=== PATIENT | male | born 1950 | race Caucasian/White ===

== ENCOUNTER 2023-03-17 09:56 | Outpatient (AMB) | payer OTHER, SELFPAY ==
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
[2023-03-17 10:37] VITALS: BP 124/66; PULSE 64; O2SAT 96; BMI 30.3
== END 2023-03-17 11:38 | disposition home or self-care (01) ==
PROVIDERS: PCP Nurse Practitioner Family; Visit Provider Nurse Practitioner Family
DX: R42 Dizziness and giddiness (principal); R25.1 Tremor, unspecified; R26.9 Unspecified abnormalities of gait and mobility
CPT/HCPCS: 99204

== ENCOUNTER → 2023-03-17 09:56 | Outpatient (BNVA) | payer OTHER, SELFPAY | PROVIDERS: PCP Nurse Practitioner Family; Visit Provider Nurse Practitioner Family ==

== ENCOUNTER 2023-06-16 09:19 | Outpatient (AMB) | payer OTHER, SELFPAY ==
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
[2023-06-16 09:26] VITALS: BP 128/72; BMI 30.5
== END 2023-06-16 10:20 | disposition home or self-care (01) ==
PROVIDERS: PCP Nurse Practitioner Family; Visit Provider Nurse Practitioner Family
DX: R42 Dizziness and giddiness (principal); I10 Essential (primary) hypertension; R25.1 Tremor, unspecified; R26.9 Unspecified abnormalities of gait and mobility
CPT/HCPCS: 99214

== ENCOUNTER → 2023-06-16 09:19 | Outpatient (BNVA) | payer OTHER, SELFPAY | PROVIDERS: PCP Nurse Practitioner Family; Visit Provider Nurse Practitioner Family ==

== ENCOUNTER 2023-07-05 08:56 | Outpatient (AMB) | payer OTHER, SELFPAY ==
[2023-07-05 09:01] VITALS: BP 120/68; PULSE 63; O2SAT 94; BMI 31.0
--- NOTE | 2023-07-05 09:01 | HO.NEPHOV_ITS ---
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 He has been experiencing dizziness for quite some time. About 4 years ago he was seen by ENT and no cause was determined. He was also seen by Neurology recently and underwent workup including MRI which were all unremarkable except for empty sella. Today he was accompanied by his daughter. At home his blood pressures have been monitored. No significant orthostatic change has been documented. His current medications include amlodipine 10 mg carvedilol 6.25 b.i.d. losartan 100-12.5 once a day. Recently gabapentin 100 mg has been added but no significant improvement. He denies any headache nausea or vomiting. He has constipation no diarrhea. He is arthritis in his shoulders. He also has pain in his lower buttocks with a presumed diagnosis of a scale bursitis. No shortness of breath or cough. No weight loss or weight gain. No palpitation no sweating. No visual symptoms Accompanied by daughter Juany who helped with translation. [facility] Medical History (Updated 06/16/23 @ 10:20 by DIANA Garcia) Strain of rotator cuff of both shoulders Tinnitus Sensorineural hearing loss Polyp of colon Peripheral polyneuropathy Osteoarthritis Mucus clot in bronchi Nephrolithiasis ILD (interstitial lung disease) HLD (hyperlipidemia) Aortic root dilation Constipation Nontraumatic compression fracture of T6 vertebra Chronic back pain Bilateral cataracts CAD (coronary artery disease) Blepharitis Atherosclerosis Anxiety History of fracture of right ankle Age-related macular degeneration Surgical History H/O hernia repair Social History Alcohol intake: never Patient Tobacco Use Status: Never used Tobacco Physical Exam Vital Signs: Last Vital Signs Pulse 63 07/05/23 09:01 BP 120/68 07/05/23 09:01 Pulse Ox 94 04/24/24 09:01 Oxygen Delivery Method Room Air 07/05/23 09:01 BMI result Body Mass Index 31.0 Blood pressure supine was 120/70. Sitting blood pressure 110/60 Standing blood pressure 110/60. He was asymptomatic Const General: comfortable Nutritional Appearance: well nourished Orientation/consciousness: patient oriented x3 HEENT Head: No normal to inspection Mouth: moist mucous membranes Eyes EOM: No Nystagmus present Neck Neck: Yes supple and Yes no JVD Resp Auscultation: clear to auscultation bilaterally, no rales and rub present Cardio Jugular venous distension: no JVD Palpation: no palpable S3 and no palpable S4 Heart sounds: no rubs GI Palpation (GI): Soft to palpation and nontender Percussion: No Fluid wave present General: Yes no CVA tenderness Back/Spine/Pelvis Back: no CVA tenderness Skin General skin exam: no rashes or lesions noted Neuro Other: No Rombergs General: patient oriented x3 Cranial nerves: Yes CN's II-XII intact bilaterally and No Nystagmus present Speech: Abnormal speech present Gait exam (Neuro): not ataxic Motor exam (neuro): no tremors Extrem General: Yes no pedal edema and No clubbing Results Reviewed Results Reviewed: Creatinine 0.7 electrolytes normal Nephrology Results: No Data to Display Assessment & Plan Assessment & Plan (1) HTN (hypertension): Code(s): I10 - Essential (primary) hypertension Category: Medical (2) Dizziness: Code(s): R42 - Dizziness and giddiness Category: Medical Plan . Abigail is a 69-year-old man with a history of longstanding hypertension and dizziness for quite some time. He is on multiple medications. I suspect that medication could be contributing to his dizziness. He is undergone ENT workup in the past which has been unremarkable. MRI shows empty sella otherwise unremarkable. Today he has no significant orthostatic blood pressure changes. Plan Check 24 hour ABPM Based on a 24 hour ABPM and I would readjust his medications to see if this any improvement in the dizziness. I have encouraged him to increase fluid intake. Orders: Orders AMB 24 Hour Blood Pressure Monitor PLACEMENT Today I10 - Essential (primary) hypertension Coding Level of Care Code New Pt Level 4 (62580) Diagnoses HTN (hypertension) I10 Dizziness R42
== END 2023-07-05 09:33 | disposition home or self-care (01) ==
PROVIDERS: PCP Nurse Practitioner Family; Referring Provider Nurse Practitioner Family; Visit Provider Internal Medicine Hypertension Specialist
DX: I10 Essential (primary) hypertension (principal); R42 Dizziness and giddiness
CPT/HCPCS: 99204

== ENCOUNTER → 2023-07-05 08:56 | Outpatient (BNVA) | payer OTHER, SELFPAY | PROVIDERS: PCP Nurse Practitioner Family; Referring Provider Nurse Practitioner Family; Visit Provider Internal Medicine Hypertension Specialist ==

== ENCOUNTER → 2023-07-25 09:43 | Outpatient (BNVA) | payer OTHER, SELFPAY | PROVIDERS: PCP Nurse Practitioner Family; Visit Provider Internal Medicine Hypertension Specialist ==

== ENCOUNTER 2023-07-26 09:41 | Outpatient (AMB) | payer OTHER, SELFPAY ==
[2023-07-26 09:47] VITALS: BP 128/72; PULSE 65; O2SAT 95; BMI 30.2
--- NOTE | 2023-07-26 09:47 | HO.NEPHOV ---
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 Accompanied by: Daughter Allergies lisinopril Allergy (Severe, Verified 07/26/23 09:48) Itching Medication List - Last Reconciled 07/26/23 by Margarito Garg MD amlodipine 5 mg PO DAILY [id number] (Refresh Optive Advanced) ophthalmic (eye) QID carvedilol 6.25 mg PO BID cholecalciferol (vitamin D3) 50 mcg PO DAILY dorzolamide-timolol 22.3-6.8 mg/mL 1 drp ophthalmic (eye) BID latanoprost 0.005% 1 drp ophthalmic (eye) QPM losartan-hydrochlorothiazide 100-12.5 mg 0.5 tabs PO DAILY rosuvastatin 20 mg PO DAILY vitamins A,C,T-hpag-wluruw (PreserVision AREDS) orally bid; HPI Comments Details: Abigail is a pleasant 73-year-old man with a history of hypertension on multiple medications. He has been experiencing dizziness for quite some time. About 4 years ago he was seen by ENT and no cause was determined. He was also seen by Neurology recently and underwent workup including MRI which were all unremarkable except for empty sella. Today he was accompanied by his daughter. At home his blood pressures have been monitored. No significant orthostatic change has been documented. His current medications include amlodipine 10 mg carvedilol 6.25 b.i.d. losartan 100-12.5 once a day. Recently gabapentin 100 mg has been added but no significant improvement. He denies any headache nausea or vomiting. He has constipation no diarrhea. He is arthritis in his shoulders. He also has pain in his lower buttocks with a presumed diagnosis of a scale bursitis. No shortness of breath or cough. No weight loss or weight gain. No palpitation no sweating. No visual symptoms Accompanied by daughter Juany who helped with translation. 07/26/23 Still feels dizzy Underwent 24 hr ABPM [facility] Medical History (Updated 06/16/23 @ 10:20 by DIANA Garcia) Strain of rotator cuff of both shoulders Tinnitus Sensorineural hearing loss Polyp of colon Peripheral polyneuropathy Osteoarthritis Mucus clot in bronchi Nephrolithiasis ILD (interstitial lung disease) HLD (hyperlipidemia) Aortic root dilation Constipation Nontraumatic compression fracture of T6 vertebra Chronic back pain Bilateral cataracts CAD (coronary artery disease) Blepharitis Atherosclerosis Anxiety History of fracture of right ankle Age-related macular degeneration Surgical History H/O hernia repair Social History Alcohol intake: never Patient Tobacco Use Status: Never used Tobacco Physical Exam Vital Signs: Last Vital Signs Pulse 65 07/26/23 09:47 BP 128/72 07/26/23 09:47 Pulse Ox 95 07/26/23 09:47 Oxygen Delivery Method Room Air 07/26/23 09:47 BMI result Body Mass Index 30.2 Blood pressure supine was 120/70. Sitting blood pressure 110/60 Standing blood pressure 110/60. He was asymptomatic Const General: comfortable Nutritional Appearance: well nourished Orientation/consciousness: patient oriented x3 HEENT Head: No normal to inspection Mouth: moist mucous membranes Eyes EOM: No Nystagmus present Neck Neck: Yes supple and Yes no JVD Resp Auscultation: clear to auscultation bilaterally, no rales and rub present Cardio Jugular venous distension: no JVD Palpation: no palpable S3 and no palpable S4 Heart sounds: no rubs GI Palpation (GI): Soft to palpation and nontender Percussion: No Fluid wave present General: Yes no CVA tenderness Back/Spine/Pelvis Back: no CVA tenderness Skin General skin exam: no rashes or lesions noted Neuro Other: No Rombergs General: patient oriented x3 Cranial nerves: Yes CN's II-XII intact bilaterally and No Nystagmus present Speech: Abnormal speech present Gait exam (Neuro): not ataxic Motor exam (neuro): no tremors Extrem General: Yes no pedal edema and No clubbing Results Reviewed Results Reviewed: Creatinine 0.7 electrolytes normal Nephrology Results: No Data to Display Assessment & Plan Assessment & Plan (1) HTN (hypertension): Code(s): I10 - Essential (primary) hypertension Category: Medical (2) Dizziness: Code(s): R42 - Dizziness and giddiness Category: Medical Plan . Abigail is a 69-year-old man with a history of longstanding hypertension and dizziness for quite some time. He is on multiple medications. I suspect that medication could be contributing to his dizziness. He is undergone ENT workup in the past which has been unremarkable. MRI shows empty sella otherwise unremarkable. Today he has no significant orthostatic blood pressure changes. 24 hour ABPM show LOW BP with white coat effect Decrease Losartan HCT 100/12.5 and Amlodipine 10 mg by 50 % ( take half a tab of each) Watch BP at home Coding Level of Care Code Est Pt Level 4 (38878) Diagnoses HTN (hypertension) I10 Dizziness R42
== END 2023-07-26 10:12 | disposition home or self-care (01) ==
PROVIDERS: PCP Nurse Practitioner Family; Visit Provider Internal Medicine Hypertension Specialist
DX: I10 Essential (primary) hypertension (principal); R42 Dizziness and giddiness
CPT/HCPCS: 93790; 99214

== ENCOUNTER → 2023-07-26 09:41 | Outpatient (BNVA) | payer OTHER, SELFPAY | PROVIDERS: PCP Nurse Practitioner Family; Visit Provider Internal Medicine Hypertension Specialist | DX: I10 Essential (primary) hypertension (principal) ==

== ENCOUNTER 2023-08-16 09:37 | Outpatient (AMB) | payer OTHER, SELFPAY ==
[2023-08-16 09:40] VITALS: BP 136/72; PULSE 64; O2SAT 94; BMI 30.3
--- NOTE | 2023-08-16 09:40 | HO.NEPHOV ---
Vital Signs 08/16/23 09:40 Height 5 ft 6 in Weight 188 lb BMI 30.3 BP 136/72 Blood Pressure Location Lt brachial Position Sitting Pulse 64 Pulse Source Pulse Oximeter Pulse Oximetry (%) 94 Oxygen Delivery Method Room Air Intake Visit Reasons: Essential (primary) hypertension/ Confirmed [employer] Aid Required: No Accompanied by: Daughter Allergies lisinopril Allergy (Severe, Verified 08/16/23 09:41) Itching HPI Comments Details: Abigail is a pleasant 73-year-old man with a history of hypertension on multiple medications. He has been experiencing dizziness for quite some time. About 4 years ago he was seen by ENT and no cause was determined. He was also seen by Neurology recently and underwent workup including MRI which were all unremarkable except for empty sella. Today he was accompanied by his daughter. At home his blood pressures have been monitored. No significant orthostatic change has been documented. His current medications include amlodipine 10 mg carvedilol 6.25 b.i.d. losartan 100-12.5 once a day. Recently gabapentin 100 mg has been added but no significant improvement. He denies any headache nausea or vomiting. He has constipation no diarrhea. He is arthritis in his shoulders. He also has pain in his lower buttocks with a presumed diagnosis of a scale bursitis. No shortness of breath or cough. No weight loss or weight gain. No palpitation no sweating. No visual symptoms Accompanied by daughter Juany who helped with translation. 07/26/23 Still feels dizzy Underwent 24 hr ABPM 08/16/2023. Feels marginally better after lowering the medications. Home blood pressure readings are acceptable. No new issues today. FORMERLY [facility], [facility]–1983 Medical History (Updated 06/16/23 @ 10:20 by DIANA Garcia) Strain of rotator cuff of both shoulders Tinnitus Sensorineural hearing loss Polyp of colon Peripheral polyneuropathy Osteoarthritis Mucus clot in bronchi Nephrolithiasis ILD (interstitial lung disease) HLD (hyperlipidemia) Aortic root dilation Constipation Nontraumatic compression fracture of T6 vertebra Chronic back pain Bilateral cataracts CAD (coronary artery disease) Blepharitis Atherosclerosis Anxiety History of fracture of right ankle Age-related macular degeneration Surgical History H/O hernia repair Social History Alcohol intake: never Patient Tobacco Use Status: Never used Tobacco Review of Systems Neuro Reports Abnormal speech present Physical Exam Vital Signs: Last Vital Signs Pulse 64 08/16/23 09:40 BP 136/72 08/16/23 09:40 Pulse Ox 94 08/16/23 09:40 Oxygen Delivery Method Room Air 08/16/23 09:40 BMI result Body Mass Index 30.3 Sitting blood pressure 110/60 Const General: comfortable Nutritional Appearance: well nourished Orientation/consciousness: patient oriented x3 HEENT Head: No normal to inspection Mouth: moist mucous membranes Eyes EOM: No Nystagmus present Neck Neck: Yes supple and Yes no JVD Resp Auscultation: clear to auscultation bilaterally, no rales and rub present Cardio Jugular venous distension: no JVD Palpation: no palpable S3 and no palpable S4 Heart sounds: no rubs GI Palpation (GI): Soft to palpation and nontender Percussion: No Fluid wave present General: Yes no CVA tenderness Back/Spine/Pelvis Back: no CVA tenderness Skin General skin exam: no rashes or lesions noted Neuro Other: No Rombergs General: patient oriented x3 Cranial nerves: Yes CN's II-XII intact bilaterally and No Nystagmus present Speech: Abnormal speech present Gait exam (Neuro): not ataxic Motor exam (neuro): no tremors Extrem General: Yes no pedal edema and No clubbing Results Reviewed Nephrology Results: No Data to Display Assessment & Plan Assessment & Plan (1) HTN (hypertension): Code(s): I10 - Essential (primary) hypertension Category: Medical (2) Dizziness: Code(s): R42 - Dizziness and giddiness Category: Medical Plan . Abigail is a 69-year-old man with a history of longstanding hypertension and dizziness for quite some time. He is on multiple medications. I suspect that medication could be contributing to his dizziness. He is undergone ENT workup in the past which has been unremarkable. MRI shows empty sella otherwise unremarkable. No significant orthostatic blood pressure changes. 24 hour ABPM showed LOW BP with white coat effect Stop Losartan HCT 100/12.5 half a tablet a day Start losartan 50 mg daily Decrease Amlodipine from 5 mg down to 2.5 mg Watch BP at home Medications: New losartan 50 mg PO DAILY 30 tabs 2RF Changed From amlodipine 5 mg PO DAILY To amlodipine 2.5 mg PO DAILY 30 tabs 1RF Coding Level of Care Code Est Pt Level 4 (22545) Diagnoses HTN (hypertension) I10 Dizziness R42
== END 2023-08-16 10:01 | disposition home or self-care (01) ==
PROVIDERS: PCP Nurse Practitioner Family; Visit Provider Internal Medicine Hypertension Specialist
DX: I10 Essential (primary) hypertension (principal); R42 Dizziness and giddiness
CPT/HCPCS: 99214

== ENCOUNTER → 2023-08-16 09:37 | Outpatient (BNVA) | payer OTHER, SELFPAY | PROVIDERS: PCP Nurse Practitioner Family; Visit Provider Internal Medicine Hypertension Specialist | DX: I10 Essential (primary) hypertension (principal) ==

== ENCOUNTER 2023-09-20 09:07 | Outpatient (AMB) | payer OTHER, SELFPAY ==
[2023-09-20 09:12] VITALS: BP 144/72; PULSE 62; O2SAT 94; BMI 30.8
--- NOTE | 2023-09-20 09:12 | HO.NEPHOV_ITS ---
Vital Signs 09/20/23 09:12 09/20/23 09:25 09/20/23 09:25 09/20/23 09:25 Height 5 ft 6 in Weight 191 lb BMI 30.8 BP 144/72 H 120/70 120/70 120/70 Blood Pressure Location Lt brachial Lt brachial Lt brachial Lt brachial Position Sitting Supine Sitting Standing Pulse 62 Pulse Source Pulse Oximeter Pulse Oximetry (%) 94 Oxygen Delivery Method Room Air Intake Visit Reasons: Essential (primary) hypertension/ LVM [employer] Technician Required: No Accompanied by: Daughter Allergies lisinopril Allergy (Severe, Verified 09/20/23 09:14) Itching HPI Comments Details: Abigail is a pleasant 73-year-old man with a history of hypertension on multiple medications. He has been experiencing dizziness for quite some time. About 4 years ago he was seen by ENT and no cause was determined. He was also seen by Neurology recently and underwent workup including MRI which were all unremarkable except for empty sella. Today he was accompanied by his daughter. At home his blood pressures have been monitored. No significant orthostatic change has been documented. His current medications include amlodipine 10 mg carvedilol 6.25 b.i.d. losartan 100-12.5 once a day. Recently gabapentin 100 mg has been added but no significant improvement. He denies any headache nausea or vomiting. He has constipation no diarrhea. He is arthritis in his shoulders. He also has pain in his lower buttocks with a presumed diagnosis of a scale bursitis. No shortness of breath or cough. No weight loss or weight gain. No palpitation no sweating. No visual symptoms Accompanied by daughter Juany who helped with translation. 07/26/23 Still feels dizzy Underwent 24 hr ABPM 08/16/2023. Feels marginally better after lowering the medications. Home blood pressure readings are acceptable. No new issues today. 09/19 After lowering anti hypertensiive, home BP has been excellent Still has dizziness [facility] Medical History (Updated 06/16/23 @ 10:20 by DIANA Garcia) Strain of rotator cuff of both shoulders Tinnitus Sensorineural hearing loss Polyp of colon Peripheral polyneuropathy Osteoarthritis Mucus clot in bronchi Nephrolithiasis ILD (interstitial lung disease) HLD (hyperlipidemia) Aortic root dilation Constipation Nontraumatic compression fracture of T6 vertebra Chronic back pain Bilateral cataracts CAD (coronary artery disease) Blepharitis Atherosclerosis Anxiety History of fracture of right ankle Age-related macular degeneration Surgical History H/O hernia repair Social History Alcohol intake: never Patient Tobacco Use Status: Never used Tobacco Physical Exam Vital Signs: Last Vital Signs Pulse 62 09/20/23 09:12 BP 144/72 H 09/20/23 09:12 Pulse Ox 94 09/20/23 09:12 Oxygen Delivery Method Room Air 09/20/23 09:12 BMI result Body Mass Index 30.8 Const General: comfortable; No acute distress Orientation/consciousness: patient oriented x3 Eyes General: appearance normal, both eyes and all related structures Visual Epterson: normal visual peterson by confrontation Neck Neck: Yes supple and Yes no JVD Resp Effort & Inspection: normal respiratory effort and respiratory effort not decreased Auscultation: rhonchi Cardio Palpation: no palpable S3 and no palpable S4 Heart sounds: no rubs GI Inspection: Yes normal to inspection Palpation (GI): Soft to palpation Percussion: Yes normal to percussion Auscultation: normal bowel sounds General: Yes no CVA tenderness Back/Spine/Pelvis Back: no CVA tenderness Skin General skin exam: no petechiae and no purpura Neuro General: patient oriented x3 and no focal motor deficits Extrem General: No clubbing and No edema Results Reviewed Nephrology Results: No Data to Display Assessment & Plan Assessment & Plan (1) HTN (hypertension): Code(s): I10 - Essential (primary) hypertension Category: Medical (2) Dizziness: Code(s): R42 - Dizziness and giddiness Category: Medical Plan . Abigail is a 69-year-old man with a history of longstanding hypertension and dizziness for quite some time. He is on multiple medications. I suspect that medication could be contributing to his dizziness. He is undergone ENT workup in the past which has been unremarkable. MRI shows empty sella otherwise unremarkable. No significant orthostatic blood pressure changes. 24 hour ABPM showed LOW BP with white coat effect - Meds were lowered last visit and tolerating well. Keep current meds No change today Dizziness is not due to hyper/hypo tension ( No orthostasis) Needs to be reevaluated by ENT Coding Level of Care Code Est Pt Level 4 (87039) Diagnoses HTN (hypertension) I10 Dizziness R42
[2023-09-20 09:25] VITALS: BP 120/70
== END 2023-09-20 09:32 | disposition home or self-care (01) ==
PROVIDERS: PCP Nurse Practitioner Family; Visit Provider Internal Medicine Hypertension Specialist
DX: I10 Essential (primary) hypertension (principal); R42 Dizziness and giddiness
CPT/HCPCS: 99214

== ENCOUNTER → 2023-09-20 09:07 | Outpatient (BNVA) | payer OTHER, SELFPAY | PROVIDERS: PCP Nurse Practitioner Family; Visit Provider Internal Medicine Hypertension Specialist | DX: I10 Essential (primary) hypertension (principal) ==